=== PATIENT | male | born 1970 | race Caucasian/White ===

== ENCOUNTER 2017-07-27 07:46 | Emergency (ER) | payer BC ==
[~2017-07-27] VITALS: Ht 195.6 cm; Wt 113.4 kg
[2017-07-27 07:47] VITALS: Ht 195.6 cm; Wt 113.4 kg
[2017-07-27 11:16] VITALS: BP 135/93
== END 2017-07-27 11:16 | disposition home or self-care (01) ==
LOC: ED 07:46
DX: M54.5 Low back pain (principal); Z88.5 Allergy status to narcotic agent
CPT/HCPCS: J1885